=== PATIENT | male | born 1990 | race African-American/Black ===

== ENCOUNTER 2016-08-22 22:37 | Inpatient (IN) ==
[2016-08-22] MEDS ORDERED: DIPH/TET/ACEL PERT BOOSTER VACCINE 0.5 ML VIAL IM ONE ×2 (22:51→23:19)
[2016-08-22] MEDS ORDERED: ONDANSETRON 4 MG/2 ML VIAL IV STA (22:51)
[2016-08-22] MEDS ORDERED: LACTATED RINGERS 1,000 ML IV STA (22:51)
[2016-08-22 23:04] LABS: Basophils % 0.4 % (0.0-0.8); Eosinophils # 0.2 10*3/uL (0.0-0.87); Eosinophils % 2.2 % (0.00-10.9); Hematocrit 39.8 VOL% (42.0-52.0); Hemoglobin 13.5 GM/DL (14.0-18.0); Immature Granulocytes % 0.1 %; Immature Granulocytes Absolute 0.01 #; Lymphocytes # 3.2 10*3/uL (1.4-4.0); Lymphocytes % 40.4 % (21.2-54.2); Mean Corpuscular HGB Conc 33.9 GM/DL (32-36); Mean Corpuscular Hemoglobin 29 PG (27-34); Mean Corpuscular Volume 84.3 FL (87-102); Mean Platelet Volume 11.9 FL (9.6-12.0); Monocytes # 0.7 10*3/uL (0.11-0.8); Monocytes % 9.4 % (1.7-12.7); Neutrophils # 3.8 10*3/uL (1.4-7.4); Neutrophils % 47.5 % (38.7-73.9); Platelet Count 172 T/CUMM (130-400); Red Blood Count 4.72 MC/CUMM (3.8-5.5); Red Cell Distribution Width 14.7 % (9.3-17.3); White Blood Count 7.9 T/CUMM (4-12)
[2016-08-22 23:10] LABS: INR 1.1; PT Patient Result 11.4 SECS; Partial Thromboplastin Time 29.5 SECS (0-40)
[2016-08-22] MEDS ORDERED: ceFAZolin 1,000 MG VIAL ONE (23:19)
[2016-08-22] MEDS ORDERED: ONDANSETRON 4 MG/2 ML VIAL ONE (23:20)
[2016-08-22 23:21] LABS: Alanine Aminotransferase 37 U/L (16-61); Albumin 3.7 G/DL (3.4-5.0); Alkaline Phosphatase 96 U/L (45-117); Amylase 103 U/L (25-115); Aspartate Amino Transferase 32 U/L (0-37); Blood Urea Nitrogen 10 MG/DL (7-18); Calcium 8.8 MG/DL (8.5-10.1); Glucose 119 MG/DL (74-106); Lactic Acid 1.8 MMOL/L (0.4-2.0); Potassium 3.9 MMOL/L (3.5-5.1); Sodium 143 MMOL/L (136-145); Total Protein 6.7 G/DL (6.4-8.3)
[2016-08-22] MEDS ORDERED: SODIUM CHLORIDE 0.9% 1,000 ML IV STA (23:36)
[2016-08-22] MEDS ORDERED: HYDROmorphone 2 MG/1 ML VIAL ONE (23:40)
[2016-08-22] MEDS ORDERED: HYDROmorphone 2 MG/1 ML VIAL IV STA (23:41)
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
[2016-08-23] MEDS ORDERED: ACETAMINOPHEN 325 MG TABLET PO PRN (00:02)
[2016-08-23] MEDS ORDERED: ONDANSETRON 4 MG/2 ML VIAL IV PRN (00:02)
[2016-08-23] MEDS ORDERED: HYDROmorphone 2 MG/1 ML VIAL IV PRN (00:02)
[2016-08-23 00:09] LABS: Barbiturates Screen,Urine Negative (Negative); Benzodiazepines Screen,Urine Negative (Negative); Cannabinoid Screen,Urine Positive (Negative); Opiate Screen,Urine Negative (Negative); Phencyclidine Screen,Urine Negative (Negative)
[2016-08-23 00:11] LABS: Apearance,Urine CLEAR (Clear); Bacteria,Urine Occasional /HPF (Few); Bilirubin,Urine Negative (Negative); Blood, Urine Small mg/dL (Negative); Glucose,Urine (UA) Negative (Negative); Hyaline Casts,Urine 2 /LPF (0-3); Ketones,Urine Negative (Negative); Mucus,Urine Occasional /LPF (Occasional); Nitrite,Urine Negative (Negative); Protein,Urine Negative; RBC,Urine 8 /HPF (0-4); Urine Color Yellow (Yellow); Urine Specific Gravity 1.035 (1.001-1.035); Urine Urobilinogen < 2.0 EU/DL (0.2-1.0); WBC,Urine 24 /HPF (0-6)
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
[2016-08-23] MEDS: DEXTROSE 5% NACL 0.45% 1,000 ML IV SCH ×3 (01:11→18:02)
[2016-08-23] MEDS: KETOROLAC 15 MG/1 ML VIAL IV SCH ×4 (01:11→18:33)
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
--- NOTE | 2016-08-23 09:38 | EKG Report ---
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
[2016-08-23] MEDS: PANTOPRAZOLE 40 MG VIAL IV SCH (09:56)
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
[2016-08-24] MEDS: KETOROLAC 15 MG/1 ML VIAL IV SCH ×4 (00:15→18:00)
[2016-08-24] MEDS: DEXTROSE 5% NACL 0.45% 1,000 ML IV SCH ×3 (02:04→17:59)
[2016-08-24] MEDS: PANTOPRAZOLE 40 MG VIAL IV SCH (09:37)
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
[2016-08-25] MEDS: KETOROLAC 15 MG/1 ML VIAL IV SCH ×3 (00:04→14:20)
[2016-08-25] MEDS: DEXTROSE 5% NACL 0.45% 1,000 ML IV SCH ×2 (03:18→15:21)
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
[2016-08-25] MEDS: PANTOPRAZOLE 40 MG VIAL IV SCH (09:35)
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
[2016-08-25 15:44] VITALS: BP 125/82
[2016-08-25] MEDS ORDERED: BENZTROPINE 1 MG TABLET PO SCH (21:00)
[2016-08-26] MEDS ORDERED: HALOPERIDOL 5 MG TABLET PO SCH (09:00)
== END 2016-08-25 14:20 | disposition home or self-care (01) | DRG 159 ==
LOC: EDUNIT# → EDBD → N.ED 22:37 → N.EDINP 08-23 00:02 → N.ICU 08-23 00:38 → N.4E 08-23 13:32
PROVIDERS: ADMIT Specialist; ATTEND Specialist